=== PATIENT | female | born 1965 | race Caucasian/White ===

== ENCOUNTER 2016-06-15 06:30 | Day surgery (SDC) | payer BC ==
--- NOTE | ~2016-06-15 | EGD ---
EGD REPORT [facility] [address] [address] NAME: GLADYS CARO : [birth year] STATUS : REG [facility]#: [id number] AGE: 51 ADM/REG DATE : 06/15/16 MR#: [id number] REPORT SERV DATE: 06/15/16 DICTATED BY: DATE: REPORT STATUS : Draft TRANSCRIBED BY: [employer] DATE: 06/15/16 [facility] Patient Name: Gladys Caro Date of : 1965 Attending MD: BRIAN LOVE MD Procedure Date No Time: 06/15/2016 Procedure: Upper GI endoscopy Indications: Pyloric stenosis, For therapy of pyloric stenosis Referring MD: CECI CRUZ Medicines: Monitored Anesthesia Care Complications: No immediate complications. Procedure: Pre-Anesthesia Assessment: - ASA Grade Assessment: II - A patient with mild systemic disease. After obtaining informed consent, the endoscope was passed under direct vision. Throughout the procedure, the patient's blood pressure, pulse, and oxygen saturations were monitored continuously. The GIF [id number] was introduced through the mouth, and advanced to the third part of duodenum. The upper GI endoscopy was accomplished without difficulty. The patient tolerated the procedure well. Findings: A small hiatus hernia was present. A widely patent Schatzki ring (acquired) was found at the gastroesophageal junction. No other significant abnormalities were identified in a careful examination of the esophagus. There is no endoscopic evidence of Espinosa's esophagus, areas of erosion, ulcerations or varices in the entire esophagus. A benign-appearing, intrinsic stenosis was found at the pylorus. This was traversed. A TTS dilator was passed through the scope. Dilation with a 10-11-12 mm pyloric balloon dilator was performed under fluoroscopic guidance. No other significant abnormalities were identified in a careful examination of the stomach. There is no endoscopic evidence of mucosal abnormalities, ulceration or varices in the entire examined stomach. The examined duodenum was normal. There is no endoscopic evidence of inflammation, mucosal abnormalities or ulceration in the entire examined duodenum. The cardia and gastric fundus were otherwise normal on retroflexion. Impression: - Hiatus hernia. EGD REPORT [address] [address] NAME: GLADYS CARO : [birth year] STATUS : REG [facility] [place] PAT#: [id number] AGE: 51 ADM/REG DATE : 06/15/16 MR#: [id number] REPORT SERV DATE: 06/15/16 DICTATED BY: DATE: REPORT STATUS : Draft TRANSCRIBED BY: [employer] DATE: 06/15/16 - Widely patent Schatzki ring. - Gastric stenosis was found at the pylorus. Dilated. - Normal examined duodenum. Recommendation: - Patient has a contact number available for emergencies. The signs and symptoms of potential delayed complications were discussed with the patient. Return to normal activities tomorrow. Written discharge instructions were provided to the patient. - Return to previous diet. - Discharge patient to home. - No aspirin, ibuprofen, naproxen, or other non-steroidal anti-inflammatory drugs. - Reduce your stomach medicine to once daily and continue. Procedure Code(s): --- Professional --- 14364, Esophagogastroduodenoscopy, flexible, transoral; with dilation of gastric/duodenal stricture(s) (eg, balloon, bougie) 69790, Intraluminal dilation of strictures and/or obstructions (eg, esophagus), radiological supervision and interpretation Diagnosis Code(s): --- Professional --- K44.9, Diaphragmatic hernia without obstruction or gangrene K22.2, Esophageal obstruction K31.1, Adult hypertrophic pyloric stenosis CPT copyright 2013 [employer]. All rights reserved. The codes documented in this report are preliminary and upon airborne operations review may be revised to meet current compliance requirements. BRIAN LOVE MD 06/15/2016 8:50 AM This report has been signed electronically. Number of Addenda: 0 Note Initiated On: 06/15/2016 8:22 AM Scope Withdrawal Time 0 hours 0 minutes 0 seconds [id number] [id number]
[~2016-06-15 06:30] MED LIST: FISH-EPA1000 MG PO; HUMIRA PEN SC; MULTIPLE VIT PO; NEXIUM40 PO; OS500+D PO; PROBIOTIC; PURINETHOL50 MG PO; ZOL100 PO
== END 2016-06-15 23:59 | disposition home or self-care (01) ==
LOC: DMU 06:30
PROVIDERS: Internal Medicine Gastroenterology
PROC: 0D778ZZ Dilation of Stomach, Pylorus, Via Natural or Artificial Opening Endoscopic (ICD-10-PCS; principal; 2016-06-15 07:30)
DX: K44.9 Diaphragmatic hernia without obstruction or gangrene (principal); K31.89 Other diseases of stomach and duodenum; K22.2 Esophageal obstruction; K31.1 Adult hypertrophic pyloric stenosis; I10 Essential (primary) hypertension; K50.90 Crohn's disease, unspecified, without complications; Z90.710 Acquired absence of both cervix and uterus